=== PATIENT | female | born 1985 | race Two or more races ===

== ENCOUNTER 2018-03-06 16:07 | Emergency (ER) | payer SELFPAY ==
--- NOTE | 2018-03-06 16:37 | ER Document Report ---
ED General Pain - General Stated Complaint: BODY ACHES Time Seen by Provider: 03/06/18 16:34 Mode of Arrival: Ambulatory Information source: Patient Notes: Chief complaint: Body aches History of complain:( obtained from----patient) 32 years old female presents today with foul-smelling urine, frequency dysuria and general body aches and pain as well as feverish. For the last few days. Denies any earache sore throat cough. Denies any difficulty in breathing. Denies any abdominal pain nausea vomiting diarrhea. Onset: As above Duration: As above Severity: Mild to moderate Quality: Achy Context: Unknown Exacerbating factor and relieving factors: Urination REVIEW OF SYSTEMS: CONSTITUTIONAL : Denies fever, chills, or sweats. Denies recent illness. EENT: Denies eye, ear, throat, or mouth pain or symptoms. Denies nasal or sinus congestion or discharge. Denies throat, tongue, or mouth swelling or difficulty swallowing. CARDIOVASCULAR: Denies chest pain. Denies palpitations or racing or irregular heart beat. Denies ankle edema. RESPIRATORY: Denies cough, cold, or chest congestion. Denies shortness of breath, difficulty breathing, or wheezing. GASTROINTESTINAL: Denies distention. Denies nausea, vomiting, or diarrhea. Denies blood in vomitus, stools, or per rectum. Denies black, tarry stools. Denies constipation. GENITOURINARY: Denies difficulty urinating, painful urination, burning, frequency, blood in urine, or discharge. FEMALE GENITOURINARY: Denies vaginal bleeding, heavy or abnormal periods, irregular periods. Denies vaginal discharge or odor. MUSCULOSKELETAL: Denies back or neck pain or stiffness. Denies joint pain or swelling. SKIN: Denies rash, lesions or sores. HEMATOLOGIC : Denies easy bruising or bleeding. LYMPHATIC: Denies swollen, enlarged glands. NEUROLOGICAL: Denies confusion or altered mental status. Denies passing out or loss of consciousness. Denies dizziness or lightheadedness. Denies headache. Denies weakness or paralysis or loss of use of either side. Denies problems with gait or speech. Denies sensory loss, numbness, or tingling. Denies seizures. PSYCHIATRIC: Denies anxiety or stress. Denies depression, suicidal ideation, or homicidal ideation. ALL OTHER SYSTEMS REVIEWED AND NEGATIVE. PHYSICAL EXAMINATION: GENERAL: Well-appearing, well-nourished and in no acute distress. HEAD: Atraumatic, normocephalic. EYES: Pupils equal round and reactive to light, extraocular movements intact, conjunctiva are normal. ENT: Nares patent, oropharynx clear without exudates. Moist mucous membranes. NECK: Normal range of motion, supple without lymphadenopathy LUNGS: Breath sounds clear to auscultation bilaterally and equal. No wheezes rales or rhonchi. HEART: Regular rate and rhythm without murmurs ABDOMEN: Soft, nontender, nondistended abdomen. No guarding, no rebound. No masses appreciated. Examination of genitals-deferred Musculoskeletal: Normal range of motion, no pitting or edema. No cyanosis. NEUROLOGICAL: Cranial nerves grossly intact. Normal speech, normal gait. Normal sensory, motor exams PSYCH: Normal mood, normal affect. SKIN: Warm, Dry, normal turgor, no rashes or lesions noted. Dictation was performed using [employer] voice recognition software TRAVEL OUTSIDE OF THE [place] IN LAST 30 DAYS: No - HPI Notes: Dictated - Related Data Allergies/Adverse Reactions: No Known Allergies Allergy (Verified 03/06/18 16:08) Past Medical History - Social History Smoking Status: Never Smoker Chew tobacco use (# tins/day): No Frequency of alcohol use: None Drug Abuse: None Lives with: Family Family History: Reviewed & Not Pertinent Patient has suicidal ideation: No Patient has homicidal ideation: No Renal/ Medical History: Denies: Hx Peritoneal Dialysis Past Surgical History: Reports: Hx Section - x2 Review of Systems - Review of Systems Notes: Dictated Physical Exam - Vital signs Vitals: Temp Pulse Resp BP Pulse Ox 98.8 F 111 H 14 126/64 H 98 03/06/18 16:10 03/06/18 16:10 03/06/18 16:10 03/06/18 16:10 03/06/18 16:10 - Notes Notes: Dictated Course - Vital Signs Vital signs: Temp Pulse Resp BP Pulse Ox 98.8 F 111 H 14 126/64 H 98 03/06/18 16:10 03/06/18 16:10 03/06/18 16:10 03/06/18 16:10 03/06/18 16:10 - Laboratory Result Diagrams: 03/06/18 17:57 Laboratory results interpreted by me: 03/06/18 03/06/18 16:45 17:57 WBC 11.6 H Hgb 9.7 L Hct 31.4 L MCV 63 L MCH 19.5 L MCHC 30.9 L RDW 17.5 H Seg Neuts % (Manual) 91 H Lymphocytes % (Manual) 8 L Monocytes % (Manual) 0 L Abs Neuts (Manual) 10.6 H Abs Monocytes (Manual) 0.0 L Urine Ketones TRACE H Ur Leukocyte Esterase SMALL H Discharge - Discharge Clinical Impression: UTI (urinary tract infection) Qualifiers: Urinary tract infection type: acute cystitis Hematuria presence: without hematuria Qualified Code(s): N30.00 - Acute cystitis without hematuria Condition: Fair Disposition: HOME, SELF-CARE Instructions: Trimethoprim-Sulfa ([facility]), Urinary Tract Infection ([facility]) Prescriptions: Sulfamethoxazole/Trimethoprim [Bactrim Ds Tablet] 1 each PO BID #14 tablet
[2018-03-06 17:06] LABS: APPEARANCE,URINE SLIGHTLY-CLOUDY; BILIRUBIN,URINE NEGATIVE (NEGATIVE); COLOR,URINE YELLOW; GLUCOSE, URINE NEGATIVE (NEGATIVE); KETONES,URINE TRACE mg/dL (NEGATIVE); LEUKOCYTE ESTERASE,URINE SMALL (NEGATIVE); NITRITE,URINE NEGATIVE (NEGATIVE); PROTEIN,URINE NEGATIVE (NEGATIVE); UROBILINOGEN,URINE NEGATIVE mg/dL (<2.0)
[2018-03-06 18:14] LABS: HEMATOCRIT 31.4 % (36.0-47.0); HEMOGLOBIN 9.7 g/dL (12.0-15.5); MEAN CORPUSCULAR HEMOGLOBIN 19.5 pg (27.0-33.4); MEAN CORPUSCULAR HGB CONC 30.9 g/dL (32.0-36.0); PLATELET COUNT 276 10^3/uL (150-450); RED BLOOD COUNT 4.99 10^6/uL (3.72-5.28); RED CELL DISTRIBUTION WIDTH 17.5 % (11.5-14.0); WHITE BLOOD COUNT 11.6 10^3/uL (4.0-10.5)
[2018-03-06 18:51] LABS: ABSOLUTE LYMPHOCYTES# (MANUAL) 0.9 10^3/uL (0.5-4.7); ABSOLUTE NEUTROPHILS# (MANUAL) 10.6 10^3/uL (1.7-8.2); BASOPHILS % (MANUAL) 0 % (0-2); EOSINOPHILS % (MANUAL) 1 % (0-6); LYMPHOCYTES % (MANUAL) 8 % (13-45); MONOCYTES % (MANUAL) 0 % (3-13); SEGMENTED NEUTROPHILS % (MAN) 91 % (42-78); TOTAL CELLS COUNTED 100
[2018-03-06 18:53] LABS: POLYCHROMASIA SLIGHT
[2018-03-06 18:54] LABS: ANISOCYTOSIS 1+; OVALOCYTES 2+; PLATELET COMMENT ADEQUATE; POIKILOCYTOSIS 2+; TEAR DROP CELLS SLIGHT
[2018-03-06 18:55] LABS: HYPOCHROMASIA 2+
[2018-03-06 18:56] LABS: MEAN CORPUSCULAR VOLUME 63 fl (80-97)
[2018-03-06] MEDS ORDERED: SULFAMETHOXAZOLE/TRIMETHOPRIM 800-160 MG TABLET PO ONE (19:12)
[2018-03-06 19:52] VITALS: BP 114/72
[2018-03-08 17:22] LABS: PATH REVIEW PATHOLOGIST REVIEWED
== END 2018-03-06 19:51 | disposition home or self-care (01) ==
LOC: ER 16:07
DX: N30.00 Acute cystitis without hematuria (principal); R52 Pain, unspecified
CPT/HCPCS: 36415; 81001; 81025; 85025; 99283

== ENCOUNTER 2019-08-25 14:07 | Emergency (ER) | payer MEDICAID ==
--- NOTE | 2019-08-25 14:18 | ER Document Report ---
ED Medical Screen (RME) - General Chief Complaint: Abnormal Lab Results Stated Complaint: ABNORMAL LABS Time Seen by Provider: 08/25/19 14:12 Primary Care Provider: HEALTH,EMPLOYEE [Primary Care Provider] - Follow up as needed TRAVEL OUTSIDE OF THE [place] IN LAST 30 DAYS: No - HPI Notes: 08/25/19 14:15 34-year-old female presents emergency room from primary care office for "needing a blood transfusion". Patient brought labs with her and shows a hematocrit of 27.9 and hemoglobin of 7.5. Patient reports she has increased fatigue, lightheadedness, losing her harvey. patient denies needing prior blood transfusions. Does not take any iron supplementation. denies fevers, chills, chest pain,palpitations, shortness of breath, dyspnea, nausea, vomiting, diarrhea, abdominal pain, hematuria,blurred vision, double vision, loss of vision, speech changes, syncope and headaches. I have greeted and performed a rapid initial assessment of this patient. A comprehensive ED assessment and evaluation of the patient, analysis of test results and completion of the medical decision making process will be conducted by additional ED providers. PHYSICAL EXAMINATION: GENERAL: Well-appearing, well-nourished and in no acute distress. CV: s1, s2 regular LUNGS: No respiratory distress - Related Data Allergies/Adverse Reactions: No Known Allergies Allergy (Verified 08/25/19 14:12) Past Medical History Renal/ Medical History: Denies: Hx Peritoneal Dialysis Past Surgical History: Reports: Hx Section - x2 Physical Exam - Vital signs Vitals: Temp Pulse Resp BP Pulse Ox 98.2 F 73 16 133/69 H 100 08/25/19 14:13 08/25/19 14:13 08/25/19 14:13 08/25/19 14:13 08/25/19 14:13 Course - Vital Signs Vital signs: Temp Pulse Resp BP Pulse Ox 98.2 F 73 16 133/69 H 100 08/25/19 14:13 08/25/19 14:13 08/25/19 14:13 08/25/19 14:13 08/25/19 14:13 Doctor's Discharge - Discharge Referrals: HEALTH,EMPLOYEE [Primary Care Provider] - Follow up as needed
[2019-08-25 14:47] LABS: ABSOLUTE BASOPHILS # (AUTO) 0.1 10^3/uL (0.0-0.2); ABSOLUTE EOSINOPHILS # (AUTO) 0.1 10^3/uL (0.0-0.6); ABSOLUTE LYMPHOCYTES (AUTO) 2.3 10^3/uL (0.5-4.7); ABSOLUTE MONOCYTES (AUTO) 0.3 10^3/uL (0.1-1.4); ABSOLUTE NEUT (AUTO) 4.1 10^3/uL (1.7-8.2); BASOPHILS % (AUTO) 1.1 % (0-2); EOSINOPHILS % (AUTO) 1.6 % (0-6); HEMATOCRIT 27.8 % (36.0-47.0); HEMOGLOBIN 8.4 g/dL (12.0-15.5); LYMPHOCYTES % (AUTO) 33.6 % (13-45); MEAN CORPUSCULAR HEMOGLOBIN 17.9 pg (27.0-33.4); MEAN CORPUSCULAR HGB CONC 30.2 g/dL (32.0-36.0); PLATELET COUNT 296 10^3/uL (150-450); RED CELL DISTRIBUTION WIDTH 22.5 % (11.5-14.0); SEGMENTED NEUTROPHILS % (AUTO) 58.7 % (42-78); TOTAL CELLS COUNTED % (AUTO) 100 %
[2019-08-25 14:49] LABS: MEAN CORPUSCULAR VOLUME 59 fl (80-97)
[2019-08-25 14:52] LABS: APPEARANCE,URINE SLIGHTLY-CLOUDY; BILIRUBIN,URINE NEGATIVE (NEGATIVE); COLOR,URINE YELLOW; GLUCOSE, URINE NEGATIVE (NEGATIVE); KETONES,URINE NEGATIVE (NEGATIVE); LEUKOCYTE ESTERASE,URINE SMALL (NEGATIVE); NITRITE,URINE POSITIVE (NEGATIVE); PROTEIN,URINE NEGATIVE (NEGATIVE); URINE SPECIFIC GRAVITY 1.016; UROBILINOGEN,URINE NEGATIVE mg/dL (<2.0)
[2019-08-25 15:11] LABS: ANISOCYTOSIS 3+; HYPOCHROMASIA 1+; OVALOCYTES 1+; POIKILOCYTOSIS 1+; POLYCHROMASIA SLIGHT; TEAR DROP CELLS SLIGHT
[2019-08-25 15:12] LABS: PLATELET COMMENT ADEQUATE
[2019-08-25 15:14] LABS: ALBUMIN 4.4 g/dL (3.5-5.0); ALKALINE PHOSPHATASE 72 U/L (38-126); ANION GAP 11 (5-19); ASPARTATE AMINO TRANSFERASE 25 U/L (14-36); BILIRUBIN,DIRECT 0.2 mg/dL (0.0-0.4); BILIRUBIN,TOTAL 0.4 mg/dL (0.2-1.3); BLOOD UREA NITROGEN 12 mg/dL (7-20); CALCIUM 9.3 mg/dL (8.4-10.2); CARBON DIOXIDE 25 mmol/L (22-30); CHLORIDE 102 mmol/L (98-107); GLUCOSE 80 mg/dL (75-110); POTASSIUM 4.4 mmol/L (3.6-5.0); TOTAL PROTEIN 8.1 g/dL (6.3-8.2)
[2019-08-25] MEDS ORDERED: CEPHALEXIN 500 MG CAPSULE PO ONE (16:07)
--- NOTE | 2019-08-25 16:13 | ER Document Report ---
ED General - General Chief Complaint: Abnormal Lab Results Stated Complaint: ABNORMAL LABS Time Seen by Provider: 08/25/19 14:12 Primary Care Provider: HEALTH,EMPLOYEE [ACTIVE STAFF] - Follow up as needed TRAVEL OUTSIDE OF THE [place] IN LAST 30 DAYS: No - HPI Notes: Patient is a 34-year-old female who presents to the emergency department for evaluation. She states that she started getting health care at [facility]. She states she had blood work done last Thursday, they told her she needed to come here and "get a blood transfusion." The patient states that for the last 8 months she has had some hair loss, been feeling weak and dizzy. She denies any chest pain with exertion. No dyspnea with exertion. She admits to heavy menstruation. She has a history of a hemorrhoid, but denies any todd melena or hematochezia. She denies any pain in her abdomen. She does states she has had some dysuria over the last week, she is concerned she is had a urinary tract infection. No fevers or chills. No nausea or vomiting. - Related Data Allergies/Adverse Reactions: No Known Allergies Allergy (Verified 08/25/19 14:12) Home Medications: [id number] iron/vitamin C supplement Past Medical History - General Information source: Patient - Social History Smoking Status: Never Smoker Frequency of alcohol use: None Drug Abuse: None Family History: Reviewed & Not Pertinent, DM, Thyroid Disfunction Patient has suicidal ideation: No Patient has homicidal ideation: No Renal/ Medical History: Denies: Hx Peritoneal Dialysis Past Surgical History: Reports: Hx Section - x2 Review of Systems - Review of Systems Constitutional: See HPI Genitourinary: See HPI Female Genitourinary: See HPI -: Yes All other systems reviewed and negative Physical Exam - Vital signs Vitals: Temp Pulse Resp BP Pulse Ox 98.2 F 73 16 133/69 H 100 08/25/19 14:13 08/25/19 14:13 08/25/19 14:13 08/25/19 14:13 08/25/19 14:13 - Notes Notes: Vital signs reviewed, please refer to chart. Head is normocephalic, atraumatic. Pupils equal round, reactive to light. Conjunctival are pale. Neck is supple without meningismus. Heart is regular rate and rhythm. Lungs are clear to auscultation bilaterally. Abdomen is soft, nontender, normoactive bowel sounds throughout. Extremities without cyanosis, clubbing. Posterior calves are nontender. Peripheral pulses are equal. Skin is warm and dry. Patient is awake, alert, neurological exam is nonfocal. Course - Re-evaluation Re-evalutation: 08/25/19 16:10 Patient presents to the emergency department for evaluation. She was told that her hemoglobin is below 8. At any rate, this is a young and healthy female, who likely has anemia secondary to menstrual loss. She is already started on iron supplements and is tolerating them well. I do not see any indication for blood transfusion at this time. Her hemoglobin is actually improved somewhat today. She is to continue her iron supplementation. Her urinalysis, however, did reveal signs of urinary tract infection. We will send urine for culture. She is given first dose of Keflex here. I will send over the prescription, she is to return to the ED with worsening or new concerning symptoms of any sort. - Vital Signs Vital signs: Temp Pulse Resp BP Pulse Ox 98.2 F 73 16 133/69 H 100 08/25/19 14:13 08/25/19 14:13 08/25/19 14:13 08/25/19 14:13 08/25/19 14:13 - Laboratory Result Diagrams: 08/25/19 14:30 08/25/19 14:30 Laboratory results interpreted by me: 08/25/19 08/25/19 08/25/19 14:21 14:30 14:30 Hgb 8.4 L Hct 27.8 L MCV 59 L MCH 17.9 L MCHC 30.2 L RDW 22.5 H Creatinine 0.51 L Urine Nitrite POSITIVE H Ur Leukocyte Esterase SMALL H Discharge - Discharge Clinical Impression: Anemia Qualifiers: Anemia type: iron deficiency Iron deficiency anemia type: chronic blood loss Qualified Code(s): D50.0 - Iron deficiency anemia secondary to blood loss ( chronic) Urinary tract infection Qualifiers: Hematuria presence: without hematuria Condition: Stable Disposition: HOME, SELF-CARE Instructions: Cephalexin ([facility]), Urinary Tract Infection ([facility]), Anemia ([facility]) Additional Instructions: Continue iron supplementation as discussed. Discuss referral on to [facility] for better control of your periods. Take all the antibiotic as prescribed until gone for urinary tract infection. Return to the emergency department with worsening or new concerning symptoms of any sort. Referrals: HEALTH,EMPLOYEE [ACTIVE STAFF] - Follow up as needed
[2019-08-25 16:35] VITALS: BP 119/80
[2019-08-26 12:27] LABS: PATH REVIEW PATHOLOGIST REVIEWED
== END 2019-08-25 16:35 | disposition home or self-care (01) ==
LOC: ER 14:07
DX: D50.0 Iron deficiency anemia secondary to blood loss (chronic) (principal); R53.1 Weakness; R42 Dizziness and giddiness; R30.0 Dysuria
CPT/HCPCS: 36415; 80053; 81001; 81025; 85025; 86850; 86900; 86901; 87086; 87088; 87186; 99283

== ENCOUNTER → 2019-12-02 | Outpatient (CLI) | payer MEDICAID | LOC: RDC 16:08 | PROVIDERS: ATTEND Nurse Practitioner Family | DX: Z53.9 Procedure and treatment not carried out, unspecified reason (principal) | CPT/HCPCS: 87635; C9803 ==